=== PATIENT | male | born 1965 | race Caucasian/White ===

== ENCOUNTER 2017-01-08 00:41 | Emergency (ER) | payer MEDICAID ==
[2017-01-08 02:51] VITALS: BP 145/85
== END 2017-01-08 02:51 | disposition home or self-care (01) ==
LOC: ED 00:41
DX: L02.412 Cutaneous abscess of left axilla (principal); I10 Essential (primary) hypertension; E11.9 Type 2 diabetes mellitus without complications; Z79.4 Long term (current) use of insulin
CPT/HCPCS: J2001; J2250

== ENCOUNTER 2018-08-30 22:12 | Emergency (ER) | payer MEDICAID ==
[~2018-08-30] VITALS: Ht 172.7 cm; Wt 72.1 kg
[2018-08-30 22:26] VITALS: Ht 172.7 cm; Wt 72.1 kg
[2018-08-31 02:07] VITALS: BP 128/93
== END 2018-08-31 02:07 | disposition home or self-care (01) ==
LOC: ED 22:12
DX: L02.31 Cutaneous abscess of buttock (principal); I10 Essential (primary) hypertension; E11.9 Type 2 diabetes mellitus without complications; E78.00 Pure hypercholesterolemia, unspecified; F41.9 Anxiety disorder, unspecified
CPT/HCPCS: 82962; J2001

== ENCOUNTER 2020-03-13 20:42 | Emergency (ER) | payer OTHER ==
[~2020-03-13] VITALS: Ht 177.8 cm; Wt 64.0 kg
[~2020-03-13 20:42] MED LIST: AUGMENTIN 875-1 EACH PO; IBU600 M2 PO; LISINOPRIL40 MG PO; METFORMIN HCL1000 MG PO; VAL10 PO
[2020-03-13 21:05] VITALS: BP 135/83; Ht 177.8 cm; Wt 64.0 kg
== END 2020-03-13 23:16 | disposition left against medical advice (07) ==
LOC: ED 20:42
DX: Z53.21 Procedure and treatment not carried out due to patient leaving prior to being seen by health care provider (principal)

== ENCOUNTER 2020-03-17 17:03 | Emergency (ER) | payer OTHER ==
[~2020-03-17] VITALS: Ht 170.2 cm; Wt 64.9 kg
[2020-03-17 17:21] VITALS: Ht 170.2 cm; Wt 64.9 kg
[2020-03-17 19:02] VITALS: BP 135/87
== END 2020-03-17 19:02 | disposition home or self-care (01) ==
LOC: ED 17:03
DX: L02.31 Cutaneous abscess of buttock (principal)

== ENCOUNTER 2020-03-28 15:16 | Emergency (ER) | payer OTHER ==
[~2020-03-28] VITALS: Ht 170.2 cm; Wt 64.4 kg
[2020-03-28 15:33] VITALS: Ht 170.2 cm; Wt 64.4 kg
[2020-03-28 16:40] VITALS: BP 115/70
== END 2020-03-28 16:40 | disposition home or self-care (01) ==
LOC: ED 15:16
DX: S31.829D Unspecified open wound of left buttock, subsequent encounter (principal); I10 Essential (primary) hypertension; E11.9 Type 2 diabetes mellitus without complications; E78.00 Pure hypercholesterolemia, unspecified; Z98.890 Other specified postprocedural states; X58.XXXD Exposure to other specified factors, subsequent encounter

== ENCOUNTER 2020-08-01 15:30 | Emergency (ER) | payer OTHER ==
[~2020-08-01] VITALS: Ht 170.2 cm; Wt 63.0 kg
[~2020-08-01 15:30] MED LIST changes: +FER300 PO; +KEF500 PO
[2020-08-01 15:39] VITALS: Ht 170.2 cm; Wt 63.0 kg
[2020-08-01 17:44] VITALS: BP 127/84
== END 2020-08-01 17:44 | disposition home or self-care (01) ==
LOC: ED 15:30
DX: L02.31 Cutaneous abscess of buttock (principal); I10 Essential (primary) hypertension; E11.9 Type 2 diabetes mellitus without complications; E78.00 Pure hypercholesterolemia, unspecified; Z48.01 Encounter for change or removal of surgical wound dressing

== ENCOUNTER 2020-08-26 00:16 | Emergency (ER) | payer OTHER ==
[~2020-08-26] VITALS: Ht 170.2 cm; Wt 64.0 kg
[2020-08-26 00:24] VITALS: Ht 170.2 cm; Wt 64.0 kg
[2020-08-26] MEDS ORDERED: BACTRIM DS1 TAB PO (01:58)
[2020-08-26] MEDS ORDERED: ACETAMINOPHEN-H1 TA1 PO (01:58)
[2020-08-26] MEDS ORDERED: KEF500 PO (01:58)
[2020-08-26 02:41] VITALS: BP 113/58
== END 2020-08-26 02:45 | disposition home or self-care (01) ==
LOC: ED 00:16
DX: S31.829A Unspecified open wound of left buttock, initial encounter (principal); L02.31 Cutaneous abscess of buttock; I10 Essential (primary) hypertension; E11.9 Type 2 diabetes mellitus without complications; E78.00 Pure hypercholesterolemia, unspecified; X58.XXXA Exposure to other specified factors, initial encounter; Y93.89 Activity, other specified; Y92.89 Other specified places as the place of occurrence of the external cause; Y99.8 Other external cause status